=== PATIENT | male | born 1985 | race Caucasian/White ===

== ENCOUNTER 2022-07-09 15:52 | Emergency (ER) | payer MEDICAID ==
[~2022-07-09] VITALS: Ht 188 cm; Wt 121.4 kg
[2022-07-09 15:53] VITALS: BP 142/93
== END 2022-07-09 17:02 | disposition left against medical advice (07) ==
LOC: EMS 15:52
DX: Z53.21 Procedure and treatment not carried out due to patient leaving prior to being seen by health care provider (principal)